=== PATIENT | female | born 1940 | race Caucasian/White ===

== ENCOUNTER 2025-04-15 13:50 | Outpatient (AMB) | payer MEDICARE, SELFPAY ==
[2025-04-15 13:50] VITALS: BP 130/72; PULSE 98; O2SAT 95; BMI 25.7
--- NOTE | 2025-04-15 13:50 | HO.NEPHOV ---
Vital Signs 04/15/25 13:50 Height 5 ft 1 in Weight 136 lb BMI 25.7 BP 130/72 Blood Pressure Location Lt brachial Position Sitting Pulse 98 Pulse Source Pulse Oximeter Pulse Oximetry (%) 95 Oxygen Delivery Method Room Air Intake Visit Reasons: ENP: CKD STG3 Capacity Planning Engineer Required: No Accompanied by: Spouse Allergies bacitracin (BACITRACIN) Allergy (Mild, Verified 04/15/25 13:53) RESTLESS trimethoprim (From Sulfamethoxazole-Trimethoprim) Allergy (Unknown, Verified 04/15/25 13:53) Diarrhea Medication List - Last Reconciled 04/15/25 by Adalberto Fernández MD amlodipine 10 mg PO DAILY denosumab (Prolia) mg subcut omeprazole 20 mg PO DAILY HPI Comments Details: The patient is an 84-year-old female presenting for evaluation of chronic kidney disease. She was referred due to a creatinine of 1.12 with an eGFR of 49 mL/min; her kidney function was previously noted to be 53% and 49%. Her past medical history is significant for hypertension, for which she takes amlodipine, and osteoporosis, for which she receives Prolia injections every 6 months. She reports her next Prolia injection is due today, but there is confusion regarding the location for administration. She also takes omeprazole for her stomach. She has a history of a kidney stone many years ago, which she passed on her own and has not had issues since. She denies any pain with urination, hematuria, or use of NSAIDs like Aleve or Motrin. She reports occasional hard stools, for which she uses a stool softener. Results - Labs: Recent creatinine was 1.12 mg/dL with an eGFR of 49 mL/min. - Prior eGFR was noted to be 53. [facility] Medical History (Updated 04/15/25 @ 14:03 by Adalberto Fernández MD) Idiopathic osteoporosis Hypertension Hiatal hernia Esophageal reflux Diverticulosis Review of Systems Const Denies fever(s) and Denies weight loss Card Denies chest pain Resp Denies cough and Denies hemoptysis GI Denies abdominal pain, Denies diarrhea and Denies nausea Musc Denies back pain Neuro Denies focal weakness Physical Exam Exam Exam: Physical Exam General: Awake. Comfortable. HENT: Neck supple. Mucosa moist. Pulmonary: Lungs aeration equal. No rales. Cardiology: Heart S1-S2 heard. No gallop. Abdomen: Soft. Non tender. Bowel sounds normal. Neurologic: No involuntary movements. No myoclonus. Extremities: Slight edema noted, likely due to amlodipine. No rash. Vital Signs: Last Vital Signs Pulse 98 04/15/25 13:50 BP 130/72 04/15/25 13:50 Pulse Ox 95 04/15/25 13:50 Oxygen Delivery Method Room Air 04/15/25 13:50 BMI result Body Mass Index 25.7 Assessment & Plan Assessment & Plan (1) Hypertension: Code(s): I10 - Essential (primary) hypertension Category: Medical Plan Plan 1. Chronic Kidney Disease, Stage 3A - The patient's eGFR is 49 mL/min, which is stable from a prior value of 53. She probably has age-related nephron loss. Other possibility would include hypertensive nephrosclerosis. No reason to believe that she has any ongoing glomerular nephritis or obstructive uropathy at this time. - Further blood and urine tests will be ordered today to further evaluate her kidney function. - She was counseled on the importance of staying well-hydrated, as dehydration can worsen kidney function. - She was advised to avoid NSAID medications, such as Aleve and Motrin. - A follow-up appointment is scheduled for September, approximately 6 months from now, pending benign lab results. 2. Hypertension - Blood pressure is well-controlled at 130/72 mmHg on amlodipine. - The patient was informed that amlodipine can be a cause of mild leg swelling. - No changes to her current regimen are indicated at this time. 3. Osteoporosis - The patient receives Prolia injections every 6 months and is due for her next dose today. - Due to a change at her previous provider's office, she is unsure where to receive the injection. - Staff will investigate local options for her to receive the Prolia injection and will contact her within a day. Orders: Orders Basic Metabolic Panel Today I10 - Essential (primary) hypertension Creatinine Urine Today I10 - Essential (primary) hypertension Total Protein Urine Random Today I10 - Essential (primary) hypertension UA and rflx microscopic Today I10 - Essential (primary) hypertension Coding Level of Care Code New Pt Level 4 (29870) Diagnoses Hypertension I10
--- OUTSIDE RECORDS SUMMARY | 2025-04-15 14:40 | XMS_ITS | Encounter Summary ---
Author Organization [facility] Address [address] [place] [address] Care Team Providers Care Military Pay Clerk Name Role Phone Mariana Delong MD Primary Care Provider [phone] Encounter Details Date Type Department Care Team (Late Contact Info) Description 04/15/2025 2:40 PM EST Lab Draw Station - [address] Primary hypertension (Primary Dx) Social History Tobacco Use Types Packs/Day Years Used Date Smoking Tobacco: Former Cigarettes 0.8 30.1 0 04/29/1956 - 05/20/1986 Smokeless Tobacco: Never Alcohol Use Standard Drinks/Week Comments Yes 0 (1 standard drink = 0.6 oz pur e alcohol) Comments No Sex and Gender Information Value Date Recorded Sex Assigned at Not on file Legal Sex Female 8:04 AM EST Gender Identity Not on file Sexual Orientation Not on file documented as of this encounter Plan of Treatment Upcoming Encounters Date Type Department Care Team (Late Contact Info) Description 05/26/2025 9:00 AM EST Appointment Radiology Department - [address] [phone] 08/12/2025 8:45 AM EDT Office Visit Adult Medicine [address] [phone] Mariana Delong MD [address] [place] [address] Pending Results Name Type Priority Associated Diagnoses Date /Time Basic metabolic panel Lab Routine Primary hypertension 04/15/2025 2:54 PM EST Creatinine, urine, random Lab Routine Primary hypertension 04/15/2025 2:54 PM EST Protein, urine, random Lab Routine Primary hypertension 04/15/2025 2:54 PM EST Urinalysis with reflex microscopic and culture Lab Routine Primary hypertension 04/15/2025 2:54 PM EST Urinalysis with reflex microscopic and culture Lab Routine Primary hypertension 04/15/2025 2:54 PM EST Scheduled Orders Name Type Priority Associated Diagnoses Orde r Schedule Basic metabolic panel Lab Routine Primary hypertension 1 Occurrences starting 04/15/2025 until 04/15/2026 Creatinine, urine, random Lab Routine Primary hypertension 1 Occurrences starting 04/15/2025 until 04/15/2026 Protein, urine, random Lab Routine Primary hypertension 1 Occurrences starting 04/15/2025 until 04/15/2026 Urinalysis with reflex microscopic and culture Lab Routine Primary hypertension 1 Occurrences starting 04/15/2025 until 04/15/2026 documented as of this encounter Procedures Procedure Name Priority Date/Time Associated Diagnosis Comments SAGASTUME URINE CULTURE TUBE Routine 04/15/2025 2:54 PM EST Primary hypertension documented in this encounter Results * Sagastume urine culture tube (04/15/2025 2:54 PM EST) Extra Tube Hold for add-ons. 04/15/2025 6:01 PM EST [facility] Comment:Auto resulted. Urine Urine specimen obtained by clean catch procedure / Unknown Non-blood Collection / Unknown 04/15/2025 2:54 PM EST 04/15/2025 2:54 PM EST Adalberto Fernández MD LAB URINE ORDERABL ES Final Result [facility] [address] [place] [address], [place] [phone] documented in this encounter Visit Diagnoses Diagnosis Primary hypertension- Primary Unspecified essential hypertension documented in this encounter Care Teams Military Pay Clerk Relationship Specialty Start Date End Date Mariana Delong MD [address] [place] [phone] PCP - General Internal Medicine 03/06/24 documented as of this encounter
--- OUTSIDE RECORDS SUMMARY | 2025-04-15 18:05 | XMS_ITS | Encounter Summary ---
Author Organization [facility] [place] [address] Care Team Providers Care Green Marketing Specialist Name Role Phone Mariana Delong MD Primary Care Provider [phone] Encounter Details Date Type Department Care Team (Late Contact Info) Description 02/11/2025 Results Follow-Up [address] [phone] Mariana Delong MD [address] [place] [address] Social History Tobacco Use Types Packs/Day Years [...] 05/26/2025 9:00 AM EST Appointment Radiology Department [address] [phone] 08/12/2025 8:45 AM EDT Office Visit Adult [address] [phone] Mariana Delong MD [address] [place], [place] documented as of this encounter Visit Diagnoses Not on filedocumented in this encounter Care Teams Green Marketing Specialist Relationship Specialty Start Date End Date Mariana Delong MD [address] [place] [address] PCP - General Internal Medicine 03/06/24 documented as of this encounter
--- OUTSIDE RECORDS SUMMARY | 2025-04-15 18:05 | XMS_ITS | Clinical Summary ---
Author Organization [facility] [address] [facility] Address [address] [facility] [place] [address] Phone Care Team Providers Care Paunch Trimmer Name Role Phone Mariana Delong MD Primary Care Provider [phone] Allergies Active Allergy Reactions Criticality Noted Date Comments Sulfamethoxazole-Trimethoprim Diarrhea 2011 Medications fluticasone propionate (FLONASE) 50 mcg/actuation nasal spray Administer 2 sprays into each nostril 1 (one) time each day. 4 Active cholecalcifero l (VITAMIN D-3) 50 mcg (2,000 unit) capsule Take 1 capsule (2,000 Units total) by mouth 1 (one) time each day. Active MULTIVITAMIN ORAL 1 tablet daily Activ e Prolia 60 mg/mL syringe syringe INJECT 60MG SUBCUTANEOUSLY ONCE DIRECTED 1 mL 5 Active amLODIPine (NORVASC) 10 mg tablet Take 1 tablet (10 mg total) by mouth 1 (one) time each day. 90 tablet 1 5 Active omeprazole (PriLOSEC) [address] capsule TAKE 1 CAPSULE DAILY -GENERIC FOR PRILOSEC 90 capsule 1 5 Active Hospital, Clinic, or Other Facility Administered Medication Ordered Dose Route Frequency Start Date End Date Status denosumab (PROLIA) syringe 60 mgIndications:Idiopathic osteoporosis 60 mg subQ Every 6 months 04/02/2024 Active Active Problems Problem Noted Date Diagnosed Date Upper airway cough syndrome 04/08/2024 LBBB (left bundle branch block) 03/08/2023 Abnormal EKG 03/08/2023 Rosacea 01/15/2022 Hiatal hernia 01/27/2015 Overview (02/20/2024): Noted on CT in [facility] 01/09/15 Solitary pulmonary nodule 01/27/2015 Overview (02/20/2024): [facility] CT of abd/pelvis 01/09/15 - 0.4 nodule laeral segment of RLL, mild interstitial fibrosis, surgical bronchiectasis. 12/2015 - stable. 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 Overview (02/20/2024): On alendronate and Boniva for ~ 5 years(last in 2010) Evista before that - ~ 1-2 years Resolved Problems Problem Noted Date Diagnosed Date Resolved Date Epistaxis 01/29/2012 02/10/2025 Overview (02/20/2024): S/p cautery at [facility], 2011; no further episodes Encounters Date Type Department Care Team Description 04/15/2025 2:40 PM EST Lab Draw Station [address] Primary hypertension (Primary Dx) 02/11/2025 Results Follow-Up Adult Medicine [address] [phone] Mariana Delong MD 02/10/2025 2:00 PM EDT Office Visit Adult Medicine [address] [phone] Mariana Delong MD Primary hypertension (Primary Dx); Gastroesophageal reflux disease without esophagitis; Upper airway cough syndrome from Last 3 Months Immunizations Immunization Administration Dates Next Due Influenza Quadravalent, MDCK , 0.5ml, preservative free (Flucelvax) 6mo and older 02/13/2019 Influenza trivalent, 0.5mL ( Fluad) 65yo and older 03/03/2023,01/23/2018,03/08/2016 Influenza trivalent, 0.5mL, preservative free (Fluarix; FluLaval; Fluzone) ages 6mo and older (Afluria) 3 years and older 01/05/2020,02/10/2015,02/15/2014,02/19,02/08/2012,02/07/2010,01/12/2008 Influenza trivalent, with pr eservative (Fluzone; Afluria) 6mo and older 02/12/2017 Influenza, Unspecified 02/08/2021 Code for [place] SARS-CoV-2 COVID-19, mRNA, LNP-S, preservative free 02/22/2021 Pneumococcal conjugate 13 va lent (Prevnar 13, PCV13) 2mo and older 05/18/2014 Pneumococcal polysaccharide 23 valent (Pneumovax 23) 2yo and older 11/09/2009 Td Tetanus diptheria (Tdvax) 7yo and older 11/09/2009 Tdap Tetanus diptheria acell ular pertussis (Boostrix; Adacel) 7yo and older 01/05/2020,08/04/2012 Zoster Live 03/02/2009 Surgical History Surgery Date Site/Laterality Comments OTHER SURGICAL HISTORY PROCEDURE: KIDNEY STONE PANEL TUBAL LIGATION PROCEDURE: HISTORICAL TUBAL LIGATION COLONOSCOPY 08/23/2009 PROCEDURE: [place] COLONOSCOPY FLX DX W/COLLJ SPEC WHEN PFRMD OTHER SURGICAL HISTORY PROCEDURE: HISTORICAL MELANOMA BREAST BIOPSY Left BX X 2-BENIGN ETIOLOGY-INTRAMAMMARY LYMPH NODE Medical History Medical History Date Comments Urinary calculus, unspecified 05/20/2006 DX :Urinary calculus, unspecified History of Mohs surgery for squamous cell carcinoma in situ of skin 03/18/2014 DX:History of Mohs surg [place] for squamous cell carcinoma in situ of skin; COMMENT: August 2013, right nose, treated with Mohs Epistaxis 01/29/2012 DX:Epistaxis; CO MMENT: S/p cautery at [facility], 2011; no further episodes Malignant neoplasm of skin of face DX:Malignant neoplasm of skin of face Family History Medical History Relation Name Comments Other: pulmonary avm Daughter Diabetes Mother Thyroid disease Mother sisters, gra ndmother Breast cancer Sister 1 40s alzheimers Breast cancer Sister 2 60 Alzheimer's disease Sister 3 and fath er Diabetes Sister 4 Diabetes Sister 5 Other: innominate artery bypass Sister 6 Other: periph arterial disease Sister 7 and brother Lung cancer Sister 8 Colon cancer Neg Hx Ovarian cancer Neg Hx Relation Name Status Comments Daughter Father Mother diabetes Sister 1 40s lung cancer Sister 2 60 Sister 3 Sister 4 Sister 5 Sister 6 Sister 7 Sister 8 Sister 9 breast cancer & alzheimers Sister 10 heart; breast c ancer Social History Tobacco Use Types Packs/Day Years [...] on file Sexual Orientation Not on file Obstetrics History Para Term AB IAB SAB Ectopic Multiple Livin g Live Births 3 3 3 3 Date Outcome GA Total Labor Labor/2nd/3rd Weight Sex Type Anes PTL Mary A1 A5 Name Clin Term Term Term Last Filed Vital Signs Vital Sign Reading Time Taken Comments Blood Pressure 128/68 02/10/2025 1:54 PM EDT Pulse 64 02/10/2025 1:54 PM EDT Temperature 36.4 C (97.5 F) 02/10/2025 1:54 PM EDT Respiratory Rate 14 02/10/2025 1:54 PM EDT Oxygen Saturation 96% 04/09/2024 1:29 PM EST Inhaled Oxygen Concentration - - Weight 60.8 kg (134 lb) 02/10/2025 1:54 PM EDT Height 154.9 cm (5' 1 ) 02/10/2025 1:54 PM EDT Body Mass Index 25.32 02/10/2025 1:54 PM EDT Plan of Treatment Upcoming Encounters Date Type Department Care Team (Late st Contact Info) Description 05/26/2025 9:00 AM EST Appointment Radiology Department [address] [phone] 08/12/2025 8:45 AM EDT Office Visit Adult Medicine [address] [phone] Mariana Delong MD [address] [place] [phone] Health Maintenance Due Date Last Done Comments Zoster Vaccines (1 of 2) 04/27/2009 03/02/2009 RSV Immunization Adult Patients (1 - 1-dose 75+ series) 08/19/2015 Falls Risk Assessment 04/07/2022 Medicare Annual Wellness Visit 04/07/2022 Social Influencers of Health Screening 04/07/2022 Depression Screening 04/29/2024 COVID-19 Vaccine ( season) 2024 02/24/2024, 11/14/2021, 02/22/2021, Additional history exists Influenza Vaccine (#1) 2024 , 02/24/2024, 03/20/2023, Additional history exists Hypertension/CHF/CAD Annual BMP Blood Test 02/11/2026 02/11/2025, 10/12/2024, 03/27/2024, Additional history exists Cholesterol Screening (Lipid Panel) 10/12/2029 10/12/2024, 10/14/2023, 10/14/2023 DTaP,Tdap,and Td Vaccines (4 - Td or Tdap) 01/04/2030 01/05/2020, 08/04/2012, 11/09/2009 Osteoporosis Screening (Bone Density Screening) 10/17/2031 10/16/2021, 05/29/2019 Pneumococcal Vaccine: 50+ Years Completed 05/18/2014, 11/09/2009 HIB Vaccines Aged Out No longer eligi ble based on patient's age to complete this topic HPV Vaccines Aged Out No longer eligi ble based on patient's age to complete this topic Hepatitis A Vaccines Aged Out No long er eligible based on patient's age to complete this topic Hepatitis B Vaccines Aged Out No long er eligible based on patient's age to complete this topic IPV Vaccines Aged Out No longer eligi ble based on patient's age to complete this topic MMR Vaccines Aged Out No longer eligi ble based on patient's age to complete this topic Meningococcal ACWY Vaccine Aged Out N o longer eligible based on patient's age to complete this topic Meningococcal B Vaccine Aged Out No l onger eligible based on patient's age to complete this topic RSV Immunization Patients Under 20 months Aged Out No longer eligible based on patient's age to complete this topic Varicella Vaccines Aged Out No longer eligible based on patient's age to complete this topic Procedures Procedure Name Priority Date/Time Associated Diagnosis Comments SAGASTUME URINE CULTURE TUBE Routine 04/15/2025 2:54 PM EST Primary hypertension BASIC METABOLIC PANEL Routine 02/11/2025 7:55 AM EDT Primary hypertension LIPID PANEL WITH REFLEX TO DIRECT LDL Routine 10/12/2024 10:39 AM EDT Primary hypertension Gastroesophageal reflux disease without esophagitis Idiopathic osteoporosis Vitamin D deficiency Screening cholesterol level DXA BONE DENSITY STUDY 1+ SITS AXIAL SKEL Routine 10/16/2021 9:35 AM EDT Other osteoporosis without current pathological fracture from Last 3 Months or Most Recently Relevant to Health Maintenance Results * Sagastume urine culture tube (04/15/2025 2:54 PM EST) Extra Tube Hold for add-ons. 04/15/2025 6:01 PM EST [facility] Comment:Auto resulted. Urine Urine specimen obtained by clean catch procedure / Unknown Non-blood Collection / Unknown 04/15/2025 2:54 PM EST 04/15/2025 2:54 PM EST Adalberto Fernández MD LAB URINE ORDERABL ES Final Result [facility] [address] [place] [address], [place] [phone] * (ABNORMAL) Basic metabolic panel (02/11/2025 7:55 AM EDT) Sodium 142 133 - 145 mmol/L LAB CHEMISTRY METHOD 02/11/2025 10:29 AM EDT [facility] Potassium 4.1 3.5 - 5.5 mmol/L LAB CHEMISTRY METHOD 02/11/2025 10:29 AM [facility] Chloride 108 96 - 110 mmol/L LAB CHEMISTRY METHOD 02/11/2025 10:29 AM [facility] CO2 30 21 - 32 mmol/L LAB CHEMISTRY METHOD 02/11/2025 10:29 AM [facility] Anion Gap 4 3 - 11 LAB CHEMISTRY METHOD 02/11/2025 10:29 AM [facility] Glucose 99 70 - 100 mg/dL LAB CHEMISTRY METHOD 02/11/2025 10:29 AM [facility] BUN 19 5 - 25 mg/dL LAB CHEMISTRY METHOD 02/11/2025 10:29 AM [facility] Creatinine 1.04 0.50 - 1.10 mg/dL LAB CHEMISTRY METHOD 02/11/2025 10:29 AM [facility] eGFR 53(L) >=60 mL/min/1. 73m2 LAB CHEMISTRY METHOD 02/11/2025 10:29 AM [facility] Comment:Calculation based on the Chronic Kidney Disease Epidemiology Collaboration (CKD-EPI) equation refit without adjustment for race. BUN/Creatinine Ratio 18.3 LAB CHEMISTRY METHOD 02/11/2025 10:29 AM [facility] Calcium 9.9 8.5 - 10.5 mg/dL LAB CHEMISTRY METHOD 02/11/2025 10:29 AM [facility] Blood Venous blood specimen / Unknown Venipuncture / Unknown 02/11/2025 7:55 AM EDT 02/11/2025 7:55 AM EDT us Mariana Delong MD LAB BLOOD ORDERABLES Final Resul t [facility] [address] [place] [address], * Lipid panel with reflex to direct LDL (10/12/2024 10:39 AM EDT) Cholesterol 146 0 - 200 mg/dL LAB CHEMISTRY METHOD 10/12/2024 2:46 PM EDT [facility] Triglycerides 87 0 - 150 mg/dL LAB CHEMISTRY METHOD 10/12/2024 2:46 PM EDT [facility] HDL 74 >=40 mg/dL LAB CHEMISTRY METHOD 10/12/2024 2:46 PM EDT [facility] LDL Calculated 55 0 - 100 mg/dL LAB CHEMISTRY METHOD 10/12/2024 2:46 PM EDT [facility] VLDL Cholesterol Jimmy 17.4 mg/dL LAB CHEMISTRY METHOD 10/12/2024 2:46 PM EDT [facility] Non HDL Chol. (LDL+VLDL) 72 <145 mg/dL LAB CHEMISTRY METHOD 10/12/2024 2:46 PM EDT [facility] Chol/HDL Ratio 2.0 0.0 - 4.4 LAB CHEMISTRY METHOD 10/12/2024 2:46 PM EDT [facility] Blood Venous blood specimen / Unknown Venipuncture / Unknown 10/12/2024 10:39 AM EDT 10/12/2024 10:39 AM EDT Rahel TAO LAB BLOOD ORDERABLES Fin al Result [facility] [address] [place] [address], * DXA BONE DENSITY STUDY 1+ SITS AXIAL SKEL (10/16/2021 9:35 AM EDT) Anatomical Region Laterality Modality Bone Densitometr y 08/09/2021 9:09 AM EDT Narrative 10/16/2021 11:01 AM EDT BONE DENSITY SCAN (DEXA): FINDINGS: Lumbar Spine T-score is -3.4. (SD relative to 20-29 y/o adult) Z-score is -0.6. (SD relative to age matched peers) This is considered osteoporosis by WHO criteria. Left Hip T-score is -2.2. Z-score is 0.1. This is considered osteopenia by WHO criteria. Comparison exam(s): As recent as 05/29/2019 and as far back as 11/17/2007. Lumbar spine: 6.6% increase in bone mineral density compared with 2020, statistically significant at the 95% confidence level. No statistically significant change compared with the baseline exam. Left hip: 10.9% loss of bone mineral density compared with 2020, statistically significant at the 95% confidence level. No statistically significant change compared with the baseline exam. Lateral survey view of the thoracolumbar spine shows no significant compression deformities. IMPRESSION: IMPRESSION: Osteoporosis by WHO criteria. The [facility] Department of Internal Medicine recommends using National Osteoporosis Foundation (NOF) guidelines in treatment decisions related to osteoporosis. NOF guidelines suggest considering treatment for postmenopausal women and men aged 50 or older presenting with the following: History of hip or vertebral fracture. T-score = -2.5 (DXA) at the femoral neck, total hip, or spine, after appropriate evaluation to exclude secondary causes. Low bone mass (T-score between -1.0 and -2.5 at the femoral neck or spine) AND a 10-year probability of a hip fracture = 3% OR a 10-year probability of a major osteoporosis-related fracture = 20% based on the [place]-adapted WHO algorithm Please note that all treatment decisions require clinical judgment and consideration of individual patient factors, including patient preferences, co-morbidities, previous drug use, risk factors not captured in the FRAX model (e.g., frailty, falls, vitamin D deficiency, increased bone turnover, interval significant decline in bone density) and possible under- or over-estimation of fracture risk by FRAX. Optional alternative screening schedule based on jacob Roman., [facility] May 17, 2011 for patients with osteopenia (based on hip BMD T-score) is as follows: * advanced osteopenia (T scores -2.00 to -2.49), BMD testing every year * moderate osteopenia (T scores -1.50 to -1.99), BMD testing every 5 years mild osteopenia or normal BMD (T scores -1.50 and higher), BMD testing every 15 years Procedure Note Christal Medellin MD - 04/17/2022 BONE DENSITY SCAN (DEXA): FINDINGS: Lumbar Spine T-score is -3.4. (SD relative to 20-29 y/o adult) Z-score is -0.6. (SD relative to age matched peers) This is considered osteoporosis by WHO criteria. Left Hip T-score is -2.2. Z-score is 0.1. This is considered osteopenia by WHO criteria. Comparison exam(s): As recent as 05/29/2019 and as far back as11/17/2007. Lumbar spine: 6.6% increase in bone mineral density compared with 2020,statistically significant at the 95% confidence level. No statistically significantchange compared with the baseline exam. Left hip: 10.9% loss of bone mineral density compared with 2020,statistically significant at the 95% confidence level. No statistically significant change comparedwith the baseline exam. Lateral survey view of the thoracolumbar spine shows no significantcompression deformities. IMPRESSION: IMPRESSION: Osteoporosis by WHO criteria. The [facility] Department of Internal Medicine recommendsusing National Osteoporosis Foundation (NOF) guidelines in treatment decisions related toosteoporosis. NOF guidelines suggest considering treatment for postmenopausal women and menaged 50 or older presenting with the following: History of hip or vertebral fracture. T-score = -2.5 (DXA) at the femoral neck, total hip, or spine, afterappropriate evaluation to exclude secondary causes. Low bone mass (T-score between -1.0 and -2.5 at the femoral neck or spine)AND a 10-year probability of a hip fracture = 3% OR a 10-year probability of a majorosteoporosis-related fracture = 20% based on the [place]-adapted WHO algorithm Please note that all treatment decisions require clinical judgment andconsideration of individual patient factors, including patient preferences, co- morbidities,previous drug use, risk factors not captured in the FRAX model (e.g., frailty, falls, vitaminD deficiency, increased bone turnover, interval significant decline in bone density) andpossible under- or over-estimation of fracture risk by FRAX. Optional alternative screening schedule based on jacob Roman., NEJMJanuary 2011 for patients with osteopenia (based on hip BMD T-score) is as follows: * advanced osteopenia (T scores -2.00 to -2.49), BMD testing every year * moderate osteopenia (T scores -1.50 to -1.99), BMD testing every 5years mild osteopenia or normal BMD (T scores -1.50 and higher), BMD testingevery 15 years Umm TAO IMG DXA PROCEDURES Final Result from Last 3 Months or Most Recently Relevant to Health Maintenance Insurance [employer] Care Teams Paunch Trimmer Relationship Specialty Start Date End Date Mariana Delong MD [address] [place] [phone] PCP - General Internal Medicine 03/06/24
--- OUTSIDE RECORDS SUMMARY | 2025-04-15 18:05 | XMS_ITS ---
Author Name [facility] Organization Unknown Care Team Organization Name Specialty Phone Email Start Date End Da te [facility] Mariana Delong Primary Care 09/03/2022 024 [facility] Termed, PROVIDER Primary Care 03/06/202211/27
== END 2025-04-15 14:13 | disposition home or self-care (01) ==
LOC: HO.HKA 13:51
PROVIDERS: PCP Internal Medicine; Referring Provider Physician Assistant; Visit Provider Internal Medicine Hypertension Specialist
DX: I10 Essential (primary) hypertension (principal)
CPT/HCPCS: 99204

== ENCOUNTER → 2025-04-15 13:50 | Outpatient (BNVA) | payer MEDICARE, SELFPAY | PROVIDERS: PCP Internal Medicine; Referring Provider Physician Assistant; Visit Provider Internal Medicine Hypertension Specialist | DX: I12.9 Hypertensive chronic kidney disease with stage 1 through stage 4 chronic kidney disease, or unspecified chronic kidney disease (principal); N18.31 Chronic kidney disease, stage 3a; M81.0 Age-related osteoporosis without current pathological fracture | CPT/HCPCS: 99202 ==